=== PATIENT | female | born 1980 | race Caucasian/White ===

== ENCOUNTER 2016-11-29 15:22 | Day surgery (SDC) | payer BC ==
[~2016-11-29] VITALS: Ht 175.3 cm; Wt 86.4 kg
[2016-11-29] VITALS (7 sets, daily range): BP systolic 110–119; BP diastolic 49–78; PULSE 44–71
[2016-11-29 15:48] LABS: BASO % 0.3 % (0.0-2.0); EOS % 0.5 % (0-4.0); GRAN # 3.1 (1.4-6.5); GRAN % 38.8 % (42.2-75.2); HEMATOCRIT 38.6 % (37.0-47.0); HEMOGLOBIN 13.7 g/dl (12.5-16.0); LYMPH # 4.4 (1.2-3.4); LYMPH % 54.9 % (20.0-51.0); MEAN CELL VOLUME 88 fl (80.0-100.0); MEAN CORPUSCULAR HEMOGLOBIN 31 pg (27.0-31.0); MEAN CORPUSCULAR HGB CONC 36 g/dl (33.0-37.0); MEAN PLATELET VOLUME 10.9 fl (7.4-10.4); MONO # 0.4 (0.1-0.6); MONO % 5.4 % (1.7-9.3); PLATELET COUNT 215 K/mm3 (130-400); RED BLOOD COUNT 4.37 M/mm3 (4.10-5.30); REDCELL DISTRIBUTION WIDTH-CV 12.6 % (11.5-14.5)
[2016-11-29 16:01] LABS: ADJUSTED CALCIUM 9.1 mg/dL (8.4-10.2); ALANINE AMINOTRANSFERASE 32 U/L (9-52); ALBUMIN 4.2 gm/dL (3.5-5.0); ALKALINE PHOSPHATASE 80 U/L (50-136); ANION GAP 15 mmol/L (7-16); BILIRUBIN,TOTAL 0.7 mg/dL (0.0-1.0); BLOOD UREA NITROGEN 7 mg/dL (7-17); C-REACTIVE PROTEIN 1.2 mg/dL (0.0-0.9); CALCIUM 9.3 mg/dL (8.4-10.2); CARBON DIOXIDE 20 mmol/L (22-30); CHLORIDE 104 mmol/L (98-107); CREATININE, serum 0.78 mg/dL (0.52-1.25); GLUCOSE 106 mg/dL (74-106); POTASSIUM 3.2 mmol/L (3.4-5.0); SODIUM 139 mmol/L (137-145); TOTAL PROTEIN 7.3 gm/dL (6.4-8.2)
[2016-11-29 16:15] LABS: PROTHROMBIN TIME 10.8 SECONDS (9.7-12.8)
[2016-11-29 16:24] LABS: TROPONIN-I < 0.012 ng/mL (0.000-0.034)
[2016-11-30 03:56] VITALS: BP 95/51; PULSE 57; TEMP 97.8
[2016-11-30] MEDS ORDERED: NORCO 325 MG-51 TAB PO (07:19)
== END 2016-11-30 08:35 | disposition home or self-care (01) ==
LOC: COL.ER 15:22 → SDCO 17:46 → SURG 20:18 → SDCO 11-30 08:35
PROVIDERS: Family Medicine
DX: K80.10 Calculus of gallbladder with chronic cholecystitis without obstruction (principal); F17.210 Nicotine dependence, cigarettes, uncomplicated
CPT/HCPCS: OP; J1100; J1170; J1885; J2405; J2704; J3010; J7030; J7120; Q9967

== ENCOUNTER → 2016-12-14 | Outpatient (CLI) | payer BC ==
[~2016-12-14] MED LIST: NORCO 325 MG-51 TAB PO
== END ==
LOC: COL.RAD 07:47
DX: T18.8XXA Foreign body in other parts of alimentary tract, initial encounter (principal); Z98.890 Other specified postprocedural states

== ENCOUNTER → 2017-01-02 | Outpatient (CLI) | payer BC | LOC: COL.RAD 07:30 | DX: Z48.815 Encounter for surgical aftercare following surgery on the digestive system (principal); Z90.49 Acquired absence of other specified parts of digestive tract; K59.00 Constipation, unspecified ==